=== PATIENT | female | born 1950 | race Caucasian/White ===

== ENCOUNTER → 2019-09-06 | Day surgery (SDC) | payer OTHER ==
[~2019-09-06] VITALS: Ht 152.4 cm; Wt 73.0 kg
[~2019-09-06] MED LIST: ADVIL PM CAPLE1 EACH PO; CALCIUM 600 +1 EAC1 PO; CENTRUM SILVER1 EAC4 PO; IBUPROFEN 600600 M1 PO; LEVOTHYROXIN0.088 MG PO; VITAMIN D-40010 MCG PO; VITAMIN D3 PO; VITAMINC500 PO
--- NOTE | ~2019-09-06 | O ---
[facility] [place] [address] OPERATIVE REPORT Name: LESLY MAHAJAN Room #: [facility].#: [id number] Admission: 09/06/19 Attend Phys: Vazquez Ramsey DPM Discharge: Date of : 50 Report #: [id number] THIS REPORT FOR: cc: Kael Mathis MD, John J. MD Ware, Brian L. DPM ~ CC: Vazquez Teran DATE OF SERVICE: 09/06/2019 SURGEON: Vazquez Ramsey DPM PREOPERATIVE DIAGNOSES: Hallux abductovalgus deformity, left foot and hammertoe deformity, second digit, left foot. POSTOPERATIVE DIAGNOSES: Hallux abductovalgus deformity, left foot and hammertoe deformity, second digit, left foot. PROCEDURE: Andrés Tano osteotomy, left foot and arthrodesis of the 2nd digit, left foot. ANESTHESIA: IV sedation with nerve block to the left foot. Hemostasis was performed with a well-padded ankle tourniquet to the left ankle. ESTIMATED BLOOD LOSS: Minimal. COMPLICATIONS: There were no complications during the procedure or the anesthesia. PREOPERATIVE COURSE: This patient has complained of a painful hammertoe deformity on second digit, left foot for quite some time and also plantar pain due to a flexor plate tear on the second digit, left foot. The flexor tendon has very little strength due to this tear and continued contracted nature of the second toe. The bunion is fairly asymptomatic, but severely impending or underlapping on the second digit making correction of the second toe impossible without a reconstruction of the great toe and correction of the bunion deformity. The patient is well aware of the risks and complications of surgery as well as technical aspects of the surgery and signed a preoperative consent form, admitting to her understanding. DESCRIPTION OF PROCEDURE: The patient was wheeled to the operating room in usual supine condition, transferred to the operating table, given IV sedation. Once the IV sedation was found to be adequate, local nerve block was given to the left foot. The left foot was then prepped and draped in the usual sterile [address] [address] OPERATIVE REPORT Name: KEYSHAWNLESLY ROJAS Room #: [facility]..#: [id number] Admission: 09/06/19 Attend Phys: Vazquez Ramsey DPM Discharge: Date of : 50 Report #: [id number] manner. Upon re-entering the operating room, anesthesia was checked and found to be adequate. Esmarch tourniquet was used to exsanguinate the blood from the left foot and ankle tourniquet elevated to 250 mmHg. A dorsal medial incision was made on the first MPJ. This was deepened sharply and bluntly, taking care to not cauterize and retract all bleeders. The capsule was then incised exposing the first MPJ and the medial eminence was resected using a sagittal saw after the medial capsule was cleared from this eminence. The lateral structures of the adductor tendon were then released from the base of the proximal phalanx and the lateral sesamoidal apparatus. Next, a K wire was used as an apical guide to direct the 60-degree Andrés osteotomy cuts, which were made and the capital fragment was shifted in a lateral corrected position. A Trilliant cannulated wire was used to temporarily fixate the head. Next, a 3-0 screw was accessed after measuring the wire, and length of screw needed to be 14 mm. C-arm radiography was used throughout this procedure to dictate the length of the pin and the screw. Next, a countersink was made on the proximal aspect of the cannulated wire as it entered the dorsal cortex. Next, the 14 mm 3.0 screw was inserted into the osteotomy and found to be held in good correction of the capital fragment. C-arm radiography again confirmed good position of the metatarsal head and screw length. The cannulated wire was removed and the remaining aspect of the bone on the medial aspect of the first metatarsal was excised using a sagittal saw. A rotary bur was used to bev the remaining dorsal and medial eminence of the first metatarsal head. Next access was gained to the base of the proximal phalanx where again a guidewire was used to perform the pie-shaped Tano osteotomy. This was placed on the proximal and lateral portion of the base of the proximal phalanx. The pie-shaped wedge of bone was removed with the apex noted proximal and lateral and the base distal and medial. Bone was removed and the osteotomy closed down upon itself. The same Trilliant screw set was used to accept this time using a 2.4 screw, same measuring technique using a cannulated wire was used and this was found to be requiring a 12 mm 2.4 Trilliant screw. This was inserted into the osteotomy and failed to purchase and keep the gap reopposed to the Tano osteotomy. It was then opted that we use a staple to re-oppose the osteotomy through Trilliant set and this successfully achieved closure and re-opposition of the osteotomy. This was visualized and confirmed with C-arm radiography and good stable positioning as the phalanx was manipulated. Good correction was found to be obtained and the great toe was no longer underlapping the second digit. The wound was copiously flushed with sterile saline. Cautery was used to maintain hemostasis to the wound and closure of the capsule was performed using 3-0 Vicryl suture, subcuticular closure with 4-0 Vicryl suture and skin closure with 4-0 nylon suture in running continuous fashion. Access was then gained to the second toe where 2 converging semielliptical incisions were made over the PIPJ of the second digit, left foot at the proximal interphalangeal joint. Skin wedge was removed exposing the joint. Sagittal saw was used to remove the cartilage from the proximal phalanx head and base of the middle phalanx. The toe was maintained in a good corrected position and a cannulated wire for the 2.4 Trilliant hammertoe screw set was used and visualized to go down the proximal, [facility] [address] [place] [address] OPERATIVE REPORT Name: LESLY MAHAJAN Ayana Room #: [facility].#: [id number] Admission: 09/06/19 Attend Phys: Vazquez Ramsey DPM Discharge: Date of : 50 Report #: [id number] middle and distal phalanx medullary canals. The positioning was realized and this screw was measured to be approximately 34 mm. Next, a 34 mm Trilliant hammertoe screw 2.4 was accessed and placed over the cannulated wire and inserted into the second toe. We will start at the second digit where the screw was measured to be requiring a 34 mm 2.4 Trilliant screw. This was placed over the cannulated wire and inserted into the second toe. Good compression was obtained after end range of motion of the screwdriver and good anatomical position and length of the screw were noted upon C-arm radiography. The K-wire was removed and the incision was reopposed using 4-0 nylon suture in a horizontal mattress fashion. Cap refill immediately returned to all digits on the left foot and sterile bandage placed on the left foot. DISPOSITION: The patient will ambulate in a postoperative shoe for the next 3 days as tolerated, was given Lortab 7.5/325 for pain management and Keflex 500 mg b.i.d. for 10 days for wound prophylaxis. She will follow up in the office after 3 days for wound evaluation. By: [id number] Vazquez Ramsey DPM /homa
[2019-09-06 10:26] VITALS: BP 138/80
== END | disposition home or self-care (01) ==
LOC: OR 08:39
PROVIDERS: ATTEND Podiatrist
DX: M20.12 Hallux valgus (acquired), left foot (principal); M20.42 Other hammer toe(s) (acquired), left foot; E03.9 Hypothyroidism, unspecified; Z98.890 Other specified postprocedural states; Z79.899 Other long term (current) drug therapy; Z98.41 Cataract extraction status, right eye; Z98.42 Cataract extraction status, left eye; Z11.59 Encounter for screening for other viral diseases; Z87.891 Personal history of nicotine dependence
CPT/HCPCS: 50010; 50101; 50386; 50951; 53341; 56526; 57091; 57178; 57494; 57802; 58176; 58177; 58178; 58179; 62110; 62850; 70005